=== PATIENT | male | born 1985 | race Caucasian/White ===

== ENCOUNTER 2016-08-02 22:39 | Emergency (ER) | payer MEDICAID | END 2016-08-03 00:15 | disposition home or self-care (01) | LOC: D.ER 22:39 | DX: R51 Headache (principal); R11.10 Vomiting, unspecified; I10 Essential (primary) hypertension; F17.200 Nicotine dependence, unspecified, uncomplicated ==

== ENCOUNTER 2016-12-13 08:07 | Emergency (ER) | payer SELFPAY ==
[2016-12-13 09:33] LABS: BASOPHILS 0.3 % (0-2); HEMOGLOBIN 16.6 g/dL (13.5-17.5); IMMATURE GRANULOCYTES 0.1 % (0-5); LYMPHOCYTES 32.4 % (15-50); MCH 31.4 pg (26.0-34.0); MCHC 35.3 g/dL (31.0-37.0); MONOCYTES 8.7 % (2-11); NEUTROPHILS 54.5 % (40-80); PLATELET COUNT 235 10x3/uL (130-400); RBC 5.28 10x6/uL (4.20-6.10); RDW 12.3 % (11.5-14.5); WBC 7.2 10x3/uL (4.8-10.8)
[2016-12-13 09:48] LABS: ALBUMIN 4.4 g/dL (3.4-5.0); ALKALINE PHOSPHATASE 71 U/L (46-116); ALT (SGPT) 69 U/L (10-68); BILIRUBIN - TOTAL 0.71 mg/dL (0.2-1.3); CALC OSMOLALITY 279 mosm/kg (275-300); CALCIUM 9.4 mg/dL (8.5-10.1); CARBON DIOXIDE 26.5 mmol/L (21.0-32.0); CHLORIDE - SERUM 105 mmol/L (98-107); GLUCOSE 103 mg/dL (74-106); PROTEIN - SERUM 7.7 g/dL (6.4-8.2); SODIUM 141 mmol/L (136-145); UREA NITROGEN 11 mg/dL (7-18); eGFR NON AFRICAN AMERICAN > 90 mL/min (90-120)
== END 2016-12-13 10:10 | disposition home or self-care (01) ==
LOC: D.ER 08:07
PROVIDERS: Emergency Medicine
DX: G51.0 Bell's palsy (principal); I10 Essential (primary) hypertension

== ENCOUNTER 2017-09-21 09:56 | Emergency (ER) | payer OTHER | END 2017-09-21 10:42 | disposition home or self-care (01) | LOC: D.ER 09:56 | DX: G43.909 Migraine, unspecified, not intractable, without status migrainosus (principal); I10 Essential (primary) hypertension; F17.200 Nicotine dependence, unspecified, uncomplicated ==

== ENCOUNTER 2019-01-07 01:44 | Inpatient (IN) | payer MEDICAID ==
[~2019-01-07] VITALS: Ht 182.9 cm; Wt 108.9 kg
--- NOTE | 2019-01-07 02:24 | NUR ---
PT GONE TO CT.
[2019-01-07 02:34] LABS: BASOPHILS 0.2 % (0-2); EOSINOPHILS 1.4 % (0-7); HEMATOCRIT 44.5 % (42.0-54.0); IMMATURE GRANULOCYTES 0.2 % (0-5); LYMPHOCYTES 14.6 % (15-50); MCH 30.8 pg (26.0-34.0); MCV 85.7 fL (80.0-100.0); MEAN PLATELET VOLUME 10.9 fL (7.4-10.4); MONOCYTES 8.1 % (2-11); NEUTROPHILS 75.5 % (40-80); PLATELET COUNT 200 10x3/uL (130-400); RBC 5.19 10x6/uL (4.20-6.10); RDW 12.2 % (11.5-14.5); WBC 8.8 10x3/uL (4.8-10.8)
--- NOTE | 2019-01-07 02:35 | NUR ---
PT PLACED ON ISOLATION D/T SUSPECTED MENINGITIS. GAVE A MASK AND ISOLATION SIGN AND CART PLACED OUTSIDE DOOR
[2019-01-07 02:37] LABS: APTT 30.9 SECONDS (22.8-39.4); PROTIME 12.7 SECONDS (11.6-15.0)
[2019-01-07 02:41] LABS: ALBUMIN 3.7 g/dL (3.4-5.0); ALKALINE PHOSPHATASE 73 U/L (46-116); ALT (SGPT) 50 U/L (10-68); BILIRUBIN - TOTAL 0.41 mg/dL (0.2-1.3); CALC OSMOLALITY 275 mosm/kg (275-300); CALCIUM 8.5 mg/dL (8.5-10.1); CARBON DIOXIDE 25.9 mmol/L (21.0-32.0); CHLORIDE - SERUM 104 mmol/L (98-107); GLUCOSE 107 mg/dL (74-106); POTASSIUM - SERUM 3.5 mmol/L (3.5-5.1); SODIUM 138 mmol/L (136-145); UREA NITROGEN 12 mg/dL (7-18); eGFR NON AFRICAN AMERICAN > 90 mL/min (90-120)
[2019-01-07 02:54] LABS: CKMB 0.4 U/L (0.0-3.6); CREATINE KINASE 92 UL (21-232)
[2019-01-07 02:55] LABS: TROPONIN-I < 0.017 ng/mL (0.000-0.060)
[2019-01-07 03:00] VITALS: BP 150/74
--- NOTE | 2019-01-07 03:00 | NUR ---
LUMBAR PUNCTURE PROCEDURE ATTEMPTED BY DR. ESTRADA. UNABLE TO OBTAIN SPINAL FLUID X 2 ATTEMPTS. PT INSTRUCTED TO LAY FLAT AFTER PROCEDURE.
--- NOTE | 2019-01-07 03:37 | NUR ---
PT TRANSFERED TO RADIOLOGY FOR LUMBAR PUNCTURE.
[2019-01-07 03:38] VITALS: BP 151/91
[2019-01-07 05:31] LABS: APPEARANCE CLEAR (CLEAR); BILIRUBIN NEGATIVE (NEGATIVE); COLOR YELLOW (YELLOW); GLUCOSE NEGATIVE (NEGATIVE); KETONE NEGATIVE (NEGATIVE); NITRITE NEGATIVE (NEGATIVE); PROTEIN NEGATIVE (NEGATIVE); SPECIFIC GRAVITY 1.005 (1.005-1.020); UROBILINOGEN NORMAL (NORMAL)
[2019-01-07 05:53] LABS: GLUCOSE - CSF 68 MG/DL (40-75); PROTEIN - CSF 62 MG/DL (12-60)
[2019-01-07 06:16] LABS: APPEARANCE - CSF CLEAR; RBC - CSF 32 cmm (0-0)
--- NOTE | 2019-01-07 06:39 | NUR ---
REPROT GIVEN TO MARIBELL ON MED II. PT TRANSFERED TO ROOM AND NOTIFIED NURSE AT DESK THAT PT WAS TO STAY @ A 30 DEGREE POSITION FOR THREE MORE HOURS AND ANTIBIOTIC AND IVF WERE IN ROOM WITH PT D/T NO IV PUMP IN ROOM.
--- NOTE | 2019-01-07 07:18 | NUR ---
TIME OUT PERFORMED @ 4:00 A.M. FOR LUMBAR PUNCTURE BY EDGARD CARPIO RTR & DR. MCNAIR
[2019-01-07 08:41] VITALS: BP 149/77
[2019-01-07 12:04] VITALS: BP 136/75
[2019-01-07 15:46] VITALS: BP 131/66
--- NOTE | 2019-01-07 19:30 | NUR ---
EVENING ROUNDS MADE. PT LAYING IN BED RESTING. PT STATES HE FEELS LIKE HE HAS A FEVER. INFORMED PT THAT HIS TEMP WAS 99.7. PT ASKED IF HE COULD HAVE SOME TYLENOL. INFORMED PT THAT I WOULD BRING IT WITH HIS NIGHT TIME MEDS. NO FURTHER CONCERNS AT THIS TIME. FAMILY AT BEDSIDE. FALL PRECAUTIONS IN PLACE. BED LOWERED AND LOCKED. CL IN REACH. WILL CMT.
[2019-01-07 20:00] VITALS: BP 90/58
--- NOTE | 2019-01-07 21:00 | NUR ---
VITALS STABLE. PT TOOK MEDS WITHOUT DIFFICULTY. TYLENOL GIVEN FOR LOW GRADE FEVER. NO FURTHER CONCERNS AT THIS TIME. WILL CTM.
--- NOTE | 2019-01-07 22:31 | NUR ---
PT C/O NAUSEA AFTER TAKING MEDICINE. PT STATED THAT HE HAD TO JUMP AND RUN TO BATHROOM BEFORE THROWING UP. ZOFRAN GIVEN TO IV IN L FA, PATENT, DRSG C/D/I. NO FURTHER CONCERNS AT THIS TIME. BED LOWERED AND LOCKED. CL IN REACH. WILL CTM.
[2019-01-08] VITALS: BP 105/60
[2019-01-08 04:00] VITALS: BP 117/58
--- NOTE | 2019-01-08 06:10 | NUR ---
PT IV INFILTRATED, IV REMOVED, TIP INTACT.
[2019-01-08 06:11] LABS: BASOPHILS 0.1 % (0-2); EOSINOPHILS 0.4 % (0-7); HEMATOCRIT 43.6 % (42.0-54.0); HEMOGLOBIN 15.4 g/dL (13.5-17.5); LYMPHOCYTES 21.5 % (15-50); MCH 30.6 pg (26.0-34.0); MCHC 35.3 g/dL (31.0-37.0); MCV 86.7 fL (80.0-100.0); MEAN PLATELET VOLUME 11.5 fL (7.4-10.4); MONOCYTES 12.4 % (2-11); NEUTROPHILS 65.6 % (40-80); PLATELET COUNT 163 10x3/uL (130-400); RBC 5.03 10x6/uL (4.20-6.10); RDW 12.6 % (11.5-14.5); WBC 7.5 10x3/uL (4.8-10.8)
[2019-01-08 06:16] LABS: CALC OSMOLALITY 275 mosm/kg (275-300); CALCIUM 8.4 mg/dL (8.5-10.1); CARBON DIOXIDE 25.7 mmol/L (21.0-32.0); CHLORIDE - SERUM 104 mmol/L (98-107); CREATININE - SERUM 0.8 mg/dL (0.6-1.3); GLUCOSE 104 mg/dL (74-106); POTASSIUM - SERUM 3.4 mmol/L (3.5-5.1); SODIUM 140 mmol/L (136-145); eGFR NON AFRICAN AMERICAN > 90 mL/min (90-120)
[2019-01-08 06:34] LABS: UREA NITROGEN 4 mg/dL (7-18)
[2019-01-08 08:49] VITALS: BP 134/83
[2019-01-08 12:25] VITALS: BP 140/78
[2019-01-08 13:19] VITALS: Ht 182.9 cm; Wt 108.9 kg
[2019-01-08] MEDS ORDERED: LEVAQUIN750 MG PO (17:52)
[2019-01-08] MEDS ORDERED: VIBRAMYCIN 100100 MG PO (17:52)
[2019-01-09 12:09] LABS: WNVS - IGG Negative (Negative); WNVS - IGM Negative (Negative)
[2019-01-09 13:10] LABS: EHRLICHIA CHAFF IGG Negative (Neg:<1:64); EHRLICHIA CHAFF IGM Negative (Neg:<1:20); HGE IGG TITER Negative (Neg:<1:64); HGE IGM TITER Negative (Neg:<1:20)
[2019-01-10 03:07] LABS: RMSF IGM 0.62 index (0.00-0.89)
--- NOTE | 2019-01-12 09:39 | MORECARE ---
CASE MANAGEMENT DISCHARGE SUMMARY PATIENT: NGUYEN ALVA UNIT: [id number] ADM DATE: 01/07/19 AGE: 33 : 83 SEX: M ROOM/BED: D.2132 AUTHOR: MICHAEL NOLAN PHYSICIAN: REFERRING PHYSICIAN: ADA BUCHANAN MD DATE OF SERVICE: 01/12/19 Discharge Plan Patient Name: NGUYEN ALVA Facility: [facility]:Ava : 1985 Planned Disposition: Home Anticipated Discharge Date: 01/08/19 Discharge Date: 01/08/2019 Expected LOS: 1 Initial Reviewer: [email or web address] Initial Review Date: 01/12/2019 Generated: 01/12/19 10:39 am Patient Name: NGUYEN ALVA Page [id number] at 0939 All edits/amendments must be made on the electronic document DICTATION DATE: 01/12/19938 WELL DRILLER: MIHAI 01/12/19938 RPT#: [id number] DC DATE:01/08/19 STATUS: DIS IN [facility] [address] [place] [address] END OF REPORT
== END 2019-01-08 18:13 | disposition home or self-care (01) | DRG 194 ==
LOC: D.ER 01:44 → D.M2 05:07
PROVIDERS: Family Medicine; ADMIT Internal Medicine Nephrology; ATTEND Internal Medicine Nephrology
DX: J18.1 Lobar pneumonia, unspecified organism (principal); F17.213 Nicotine dependence, cigarettes, with withdrawal; F41.9 Anxiety disorder, unspecified; I10 Essential (primary) hypertension; G51.0 Bell's palsy; R32 Unspecified urinary incontinence

== ENCOUNTER 2020-10-29 20:19 | Emergency (ER) | payer MEDICAID ==
[~2020-10-29] VITALS: Ht 182.9 cm; Wt 106.6 kg
[~2020-10-29 20:19] MED LIST: LEVAQUIN750 MG PO; VIBRAMYCIN 100100 MG PO
[2020-10-29 20:27] VITALS: BP 155/98; Ht 182.9 cm; Wt 106.6 kg
== END 2020-10-29 21:14 | disposition home or self-care (01) ==
LOC: D.ER 20:19
DX: J06.9 Acute upper respiratory infection, unspecified (principal); G51.0 Bell's palsy